=== PATIENT | male | born 1975 | race African-American/Black ===

== ENCOUNTER 2019-06-27 03:46 | Emergency (ER) | payer SELFPAY ==
[~2019-06-27] VITALS: Ht 165.1 cm; Wt 65.0 kg
[2019-06-27 04:17] LABS: HEMATOCRIT 50.5 % (39.0-50.0); HEMOGLOBIN 16.6 g/dl (14.0-18.0); IMMATURE GRANULOCYTES 0.1 % (0.0-5.0); MEAN CELL VOLUME 94.9 fL CALC (80.0-100.0); MEAN CORPUSCULAR HGB 31.2 pG CALC (26.0-32.0); MEAN CORPUSCULAR HGB CONC 32.9 g/L CALC (32.0-36.0); NEUT# 2.26 thou/uL (1.82-7.42); RED BLOOD COUNT 5.32 mill/uL (4.70-6.10); RED CELL DISTRI WIDTH 13.3 % (11.5-15.5)
[2019-06-27 04:32] LABS: ALBUMIN 4.8 g/dL (3.2-5.0); ALKALINE PHOSPHATASE 64 u/l (38-126); ANION GAP 14 (6-22 (CALC)); BILIRUBIN, TOTAL 0.8 mg/dL (0.0-1.4); BUN 13 mg/dL (9-20); BUN/CREATININE RATIO 11 (12-20 (CALC)); CARBON DIOXIDE 29 mmol/l (22-30); CHLORIDE 105 mmol/l (95-108); CREATININE 1.2 mg/dL (0.7-1.3); GFR > 60 ML/MIN (>=60 (CALC)); GFR FOR AFR.AMER. > 60 ML/MIN (>=60 (CALC)); POTASSIUM 4.3 mmol/l (3.5-5.1); SGOT/AST 36 u/l (17-59); SODIUM 143 mmol/l (137-146); TOTAL PROTEIN 8.3 g/dL (6.3-8.2)
[2019-06-27] MEDS ORDERED: VENTOLIN HFA IN (05:36)
[2019-06-27] MEDS ORDERED: PREDNISONE50 MG PO (05:36)
[2019-06-27 06:00] VITALS: BP 120/78
== END 2019-06-27 06:00 | disposition home or self-care (01) | DRG 203 ==
LOC: ED 03:46
PROVIDERS: Family Medicine
DX: J45.901 Unspecified asthma with (acute) exacerbation (principal); R06.02 Shortness of breath

== ENCOUNTER 2019-07-03 22:43 | Emergency (ER) | payer SELFPAY ==
[~2019-07-03] VITALS: Ht 165.1 cm; Wt 65.0 kg
[~2019-07-03 22:43] MED LIST: PREDNISONE50 MG PO; VENTOLIN HFA IN
[2019-07-04 00:48] LABS: ALBUMIN 4.7 g/dL (3.2-5.0); ALKALINE PHOSPHATASE 69 u/l (38-126); ANION GAP 15 (6-22 (CALC)); BILIRUBIN, TOTAL 0.8 mg/dL (0.0-1.4); BUN 20 mg/dL (9-20); BUN/CREATININE RATIO 17 (12-20 (CALC)); CARBON DIOXIDE 26 mmol/l (22-30); CHLORIDE 104 mmol/l (95-108); CREATININE 1.2 mg/dL (0.7-1.3); GFR > 60 ML/MIN (>=60 (CALC)); GFR FOR AFR.AMER. > 60 ML/MIN (>=60 (CALC)); POTASSIUM 4.7 mmol/l (3.5-5.1); SGOT/AST 35 u/l (17-59); SODIUM 141 mmol/l (137-146); TOTAL PROTEIN 8.1 g/dL (6.3-8.2)
[2019-07-04 00:58] LABS: HEMATOCRIT 52.1 % (39.0-50.0); IMMATURE GRANULOCYTES 0.4 % (0.0-5.0); MEAN CORPUSCULAR HGB 30.4 pG CALC (26.0-32.0); MEAN CORPUSCULAR HGB CONC 32.6 g/L CALC (32.0-36.0); NEUT# 3.51 thou/uL (1.82-7.42); RED BLOOD COUNT 5.6 mill/uL (4.70-6.10); RED CELL DISTRI WIDTH 13.3 % (11.5-15.5)
[2019-07-04] MEDS ORDERED: ALBUTEROL SUL0.083 % IN (03:00)
[2019-07-04] MEDS ORDERED: NEBULIZE2 NEB (03:00)
[2019-07-04] MEDS ORDERED: COMBIVENT RESPIMAT IN (03:00)
[2019-07-04 03:38] VITALS: BP 100/63
== END 2019-07-04 03:20 | disposition home or self-care (01) | DRG 203 ==
LOC: ED 22:43
PROVIDERS: Emergency Medicine
DX: J45.901 Unspecified asthma with (acute) exacerbation (principal)
CPT/HCPCS: Q9967